=== PATIENT | female | born 1980 | race Caucasian/White ===

== ENCOUNTER 2021-12-06 16:39 | Inpatient (IN) ==
[2021-12-06 19:10] LABS: ABS Lymphocytes 1.2 10^3/ul (1.0-4.8); ABS Monocytes 0.5 10^3/ul (0-0.8); ABS Neutrophils 5.9 10^3/ul (1.5-7.7); Eosinophil % 0.5 %; Hematocrit 37 % (35-47); Hemoglobin 12.6 g/dL (12.0-16.0); Lymphocyte % 15.2 %; Mean Corpuscular HGB Conc 34 g/dL (31-36); Mean Corpuscular Hemoglobin 32 pg (27-31); Mean Corpuscular Volume 93 fL (80-97); Mean Platelet Volume 6.9 fL (7.4-10.4); Platelet Count 254 10^3/uL (150-450); Red Blood Count 3.95 10^6 /uL (3.70-4.87); Red Cell Distribution Width 22 % (10-15); White Blood Count 7.7 10^3/uL (3.5-10.8)
[2021-12-06 19:24] LABS: Urine Appearance Cloudy; Urine Bilirubin Negative (Negative); Urine Blood 1+ (Negative); Urine Color Yellow; Urine Glucose Negative (Negative); Urine Ketones Trace (Negative); Urine Nitrite Negative (Negative); Urine Protein 1+(30 mg/dL) (Negative); Urine Urobilinogen Negative (Negative)
[2021-12-06 19:27] LABS: Albumin 4.3 g/dL (3.2-5.2); Albumin/Globulin Ratio 1.1 (1-3); Calcium 9.8 mg/dL (8.6-10.3); Globulin 3.8 g/dL (2-4); Magnesium 1.8 mg/dL (1.9-2.7); Potassium 3.5 mmol/L (3.5-5.0); Total Bilirubin 0.5 mg/dL (0.2-1.0); Total Protein 8.1 g/dL (6.4-8.9); eGFR CKD-EPI 112.1 (>60)
[2021-12-06 19:31] LABS: Urine Bacteria 3+ (Absent); Urine Red Blood Cell Trace(0-2/hpf) (Absent); Urine Squamous Epithelial Cell Present (Absent); Urine White Blood Cell 3+(>20/hpf) (Absent)
[2021-12-06] MEDS ORDERED: Ondansetron 4 mg VIAL 2 MG/ML 2 ml VIAL IV ONE (20:20)
[2021-12-06] MEDS ORDERED: Iohexol 300 (CONTRAST) 10 ML SDV IV ONE (20:32)
[2021-12-06] MEDS ORDERED: Piperacillin/Tazobac ADVAN 3.375 GM in NS 0.9% 100 ml BAG 100 ML IV ONE (21:02)
[2021-12-06] MEDS ORDERED: Lactated Ringers 1000 ml BAG 1,000 ML IV ONE (21:03)
[2021-12-07] MEDS: Piperacillin/Tazobac ADVAN 3.375 GM in NS 0.9% 100 ml BAG 100 ML IV SCH ×2 (03:45→08:41)
[2021-12-07] MEDS ORDERED: Piperacillin/Tazobac ADVAN 3.375 GM in NS 0.9% 100 ml BAG 100 ML IV SCH (06:00)
[2021-12-07 10:42] LABS: ABS Eosinophils 0.1 10^3/ul (0-0.6); ABS Lymphocytes 0.6 10^3/ul (1.0-4.8); ABS Monocytes 0.3 10^3/ul (0-0.8); ABS Neutrophils 5.3 10^3/ul (1.5-7.7); Eosinophil % 1.2 %; Hematocrit 31 % (35-47); Hemoglobin 10.7 g/dL (12.0-16.0); Lymphocyte % 9.6 %; Mean Corpuscular HGB Conc 34 g/dL (31-36); Mean Corpuscular Hemoglobin 32 pg (27-31); Mean Corpuscular Volume 93 fL (80-97); Mean Platelet Volume 6.7 fL (7.4-10.4); Platelet Count 208 10^3/uL (150-450); Red Blood Count 3.37 10^6 /uL (3.70-4.87); Red Cell Distribution Width 22 % (10-15); White Blood Count 6.4 10^3/uL (3.5-10.8)
[2021-12-07 11:11] LABS: Calcium 8.4 mg/dL (8.6-10.3); Magnesium 1.7 mg/dL (1.9-2.7); Potassium 2.9 mmol/L (3.5-5.0); eGFR CKD-EPI 116.5 (>60)
[2021-12-07] MEDS ORDERED: Morphine 2 MG/ML SYRINGE IV PRN (12:01)
[2021-12-07] MEDS ORDERED: fentaNYL 100 mcg/2 ml 50 MCG/ML VIAL IV SLOW PU PRN (12:04)
[2021-12-07] MEDS: Nicotine PATCH 14 MG/24 HR PATCH TRANSDERM SCH (13:51)
[2021-12-07] MEDS ORDERED: Potassium Chlor 20 meq TAB.ER PO SCH (15:13)
[2021-12-07] MEDS ORDERED: Magnesium Sulf 4 GM/100 ML IV 4,000 MG/100 ML BAG IVPB ONE (16:00)
[2021-12-07] MEDS ORDERED: cefTRIAXone 2 GM ADDV.VIAL 2 GM in NS 0.9% 100 ml BAG 100 ML IV SCH (17:00)
[2021-12-07] MEDS: HYDROmorphone 0.5 MG/0.5 ML SYRINGE IV PRN ×2 (18:06→22:05)
[2021-12-07 22:18] LABS: Calcium 9.1 mg/dL (8.6-10.3); Magnesium 3.4 mg/dL (1.9-2.7); Potassium 3.2 mmol/L (3.5-5.0)
[2021-12-08] MEDS: HYDROmorphone 0.5 MG/0.5 ML SYRINGE IV PRN (02:05)
[2021-12-08] MEDS ORDERED: diPHENhydraMINE IV 50 MG/ML 1 ml VIAL (BENADRYL) IV ONE (04:33)
[2021-12-08 04:52] LABS: ABS Eosinophils 0.1 10^3/ul (0-0.6); ABS Lymphocytes 1.2 10^3/ul (1.0-4.8); ABS Monocytes 0.8 10^3/ul (0-0.8); ABS Neutrophils 5.7 10^3/ul (1.5-7.7); Hematocrit 31 % (35-47); Hemoglobin 10.3 g/dL (12.0-16.0); Mean Corpuscular HGB Conc 33 g/dL (31-36); Mean Corpuscular Hemoglobin 31 pg (27-31); Mean Corpuscular Volume 94 fL (80-97); Mean Platelet Volume 6.7 fL (7.4-10.4); Platelet Count 231 10^3/uL (150-450); Red Blood Count 3.33 10^6 /uL (3.70-4.87); Red Cell Distribution Width 21 % (10-15); White Blood Count 7.8 10^3/uL (3.5-10.8)
[2021-12-08 04:53] LABS: Eosinophil % 1.3 %; Lymphocyte % 15.5 %
[2021-12-08 05:06] LABS: Magnesium 2.2 mg/dL (1.9-2.7); Potassium 3.6 mmol/L (3.5-5.0)
[2021-12-08 05:12] LABS: eGFR CKD-EPI 120.8 (>60)
[2021-12-08] MEDS: Nicotine PATCH 14 MG/24 HR PATCH TRANSDERM SCH (08:55)
[2021-12-08 11:48] VITALS: BP 127/72
== END 2021-12-08 14:30 | disposition home or self-care (01) | DRG 463 ==
LOC: ED 16:39 → EDHOLD 12-07 01:34 → SUATTDRO 12-07 01:34 → MEDTELE 12-07 11:18
PROVIDERS: ADMIT Student in an Organized Health Care Education/Training Program; ATTEND Student in an Organized Health Care Education/Training Program